=== PATIENT | female | born 1985 | race African-American/Black ===

== ENCOUNTER 2021-06-30 02:04 | Inpatient (IN) | payer OTHER ==
[2021-06-30] MEDS ORDERED: RAPID SEQUENCE INTUBATION KIT NR ONE (02:07)
[2021-06-30] MEDS ORDERED: ACETAMINOPHEN 1000 MG/100 ML BAG IVPB ONE (02:36)
[2021-06-30] MEDS ORDERED: DEXAMETHASONE SOD PHOSPHATE 10 MG/1 ML VIAL IVPUSH ONE (02:39)
[2021-06-30 02:46] LABS: BASO % 1.2 % (0-2.0); EOS % 1.5 % (0-4.5); HEMATOCRIT 34.9 % (32.4-45.2); HEMOGLOBIN 10.1 GM/dL (10.7-15.3); MCH 26.6 pg (25.7-33.7); MEAN CELL VOLUME 91.5 fl (80-96); MEAN PLT VOLUME 9.3 fl (7.5-11.1); MONO % 10.4 % (3.8-10.2); NEUT % 65.9 % (42.8-82.8); PLATELET COUNT 235 10^3/uL (134-434); RBC 3.81 M/mm3 (3.60-5.2); RDW 15.4 % (11.6-15.6); WHITE BLOOD COUNT 9.1 K/mm3 (4.0-10.0)
[2021-06-30 02:53] LABS: PROTHROMBIN TIME (PATIENT) 11.2 SEC (9.7-13.0)
[2021-06-30 02:55] LABS: ACTIVATED PTT 58.3 SECONDS (25.2-36.5)
[2021-06-30 02:58] VITALS: TEMP 98.4; BMI 40.6
[2021-06-30] MEDS ORDERED: DEXAMETHASONE SOD PHOSPHATE 10 MG/1 ML VIAL ONE (03:01)
[2021-06-30 03:05] LABS: CHLORIDE 105 mmol/L (98-107); SODIUM 139 mmol/L (136-145)
[2021-06-30 03:08] LABS: ALBUMIN 2.2 g/dl (3.4-5.0); ANION GAP 26 MMOL/L (8-16); BLOOD UREA NITROGEN 10.3 mg/dL (7-18); CALCIUM 7.3 mg/dL (8.5-10.1); CO2 8 mmol/L (21-32)
[2021-06-30 03:11] LABS: BILIRUBIN,DIRECT 0.1 mg/dL (0.0-0.2); CREATININE 1.6 mg/dL (0.55-1.3); SGOT/AST 27 U/L (15-37); SGPT/ALT 23 U/L (13-61)
[2021-06-30 03:12] LABS: BILIRUBIN,TOTAL 0.1 mg/dL (0.2-1); LDH 248 U/L (84-246)
[2021-06-30 03:14] LABS: ALK PHOS 51 U/L (45-117)
[2021-06-30] MEDS ORDERED: SODIUM CHLORIDE 0.9% 500 ML INFUS.BAG IV ONE (03:23)
[2021-06-30 03:40] LABS: LACTIC ACID > 15.0 mmol/L (0.4-2.0)
[2021-06-30] MEDS ORDERED: LACTATED RINGERS SOLUTION 1000 ML INFUS.BAG IV ONE (03:49)
[2021-06-30 04:11] LABS: GLUCOSE,RANDOM 444 mg/dL (74-106)
[2021-06-30] MEDS ORDERED: NOREPINEPHRINE BITARTRATE 16,000 MCG in SODIUM CHLORIDE 16,000 MCG/500 ML INFUS.BAG IV SCH (04:15)
[2021-06-30 04:33] LABS: ARTERIAL BLD GAS O2 SATURATION 99.3 % (95-98); ARTERIAL BLOOD GAS BASE EXCESS -18.1 mmol/L (-2-2); ARTERIAL BLOOD GAS PO2 269.4 mmHg (80-100)
[2021-06-30 04:37] LABS: ARTERIAL BLOOD GAS pH 7.038 (7.350-7.450)
[2021-06-30 04:38] VITALS: BP 109/89; PULSE 122
[2021-06-30 04:59] LABS: EPI CELLS 33 /uL (0-25.1); HYALINE CASTS 12 /uL (0-3.1); URINE APPEARANCE CLOUDY; URINE BACTERIA 94 /uL (0-1359); URINE BILIRUBIN NEGATIVE (NEGATIVE); URINE COLOR YELLOW; URINE GLUCOSE (UA) 1+ (NEGATIVE); URINE KETONE TRACE (NEGATIVE); URINE LEUK ESTERASE NEGATIVE (NEGATIVE); URINE NITRITE NEGATIVE (NEGATIVE); URINE PROTEIN 2+ (NEGATIVE); URINE UROBILINOGEN 0.2 mg/dL (0.2-1.0); URINE WBC 23 /uL (0-25.8)
[2021-06-30] MEDS ORDERED: HYDROXOCOBALAMIN IV ONE (05:00)
[2021-06-30] MEDS ORDERED: ALTEPLASE 100 MG/100 ML VIAL IVPB ONE (05:00)
[2021-06-30] MEDS ORDERED: SODIUM BICARBONATE 8.4% 50 MEQ/50 ML VIAL ONE ×2 (05:05→05:16)
[2021-06-30] MEDS ORDERED: EPINEPHrine 1:10,000 (P-F SYR) 1 MG/10 ML DISP.SYRIN ONE ×2 (05:11→05:15)
[2021-06-30 05:13] LABS: METHADONE, UR NEGATIVE (NEGATIVE)
[2021-06-30 05:14] LABS: OPIATES, URI NEGATIVE (NEGATIVE); PHENCYCLIDINE,URINE NEGATIVE (NEGATIVE); URINE AMPHETAMINES NEGATIVE (NEGATIVE); URINE BARBITURATES NEGATIVE (NEGATIVE); URINE BENZODIAZEPINES NEGATIVE (NEGATIVE)
[2021-06-30] MEDS ORDERED: ALTEPLASE 100MG 100 ML ONE (05:20)
[2021-06-30 05:56] LABS: LACTIC ACID 9.4 mmol/L (0.4-2.0)
[2021-06-30 06:24] LABS: URINE RBC 0 /uL (0-23.9)
[2021-06-30 10:38] LABS: COCAINE, UR NEGATIVE (NEGATIVE)
== END 2021-06-30 05:10 | disposition expired | DRG 208 ==
LOC: JER 02:04 → JERBED 02:53
PROVIDERS: ADMIT Internal Medicine Pulmonary Disease; ATTEND Internal Medicine Pulmonary Disease
PROC: 06HM33Z Insertion of Infusion Device into Right Femoral Vein, Percutaneous Approach (ICD-10-PCS; principal; 2021-06-30)
PROC: 5A1935Z Respiratory Ventilation, Less than 24 Consecutive Hours (ICD-10-PCS; 2021-06-30)
PROC: 0BH17EZ Insertion of Endotracheal Airway into Trachea, Via Natural or Artificial Opening (ICD-10-PCS; 2021-06-30)
PROC: 3E0333Z Introduction of Anti-inflammatory into Peripheral Vein, Percutaneous Approach (ICD-10-PCS; 2021-06-30)
DX: U07.1 COVID-19 (principal); J80 Acute respiratory distress syndrome; J12.82 Pneumonia due to coronavirus disease 2019
CPT/HCPCS: 36415; 36600; 71045-TC-FY; 80053; 80307; 81003; 82010; 82248; 82375; 82550; 82728; 82803; 82962; 83605; 83615; 84484; 84703; 85025; 85610; 85730; 86140; 87040; 87086; 87804; 87807; 93005; 93010; 99285-25; C9803; J1100; U0003; U0005